=== PATIENT | female | born 1985 | race Caucasian/White ===

== ENCOUNTER → 2016-12-02 | Outpatient (CLI) | payer BC | LOC: GMA 14:45 | PROVIDERS: ATTEND Nurse Practitioner Acute Care | DX: J01.80 Other acute sinusitis (principal) ==

== ENCOUNTER → 2017-04-20 | Outpatient (CLI) | payer BC | END | disposition home or self-care (01) | LOC: GMA 19:25 | PROVIDERS: ATTEND Nurse Practitioner Acute Care | DX: D50.9 Iron deficiency anemia, unspecified (principal); E53.9 Vitamin B deficiency, unspecified ==

== ENCOUNTER → 2017-09-03 | Outpatient (CLI) | payer BC | END | disposition home or self-care (01) | LOC: GMAM 18:22 | PROVIDERS: ATTEND Family Medicine | DX: M25.50 Pain in unspecified joint (principal) ==

== ENCOUNTER → 2018-02-08 | Outpatient (CLI) | payer BC | LOC: GMAM 16:32 | PROVIDERS: ATTEND Family Medicine | DX: D53.9 Nutritional anemia, unspecified (principal); E53.8 Deficiency of other specified B group vitamins ==

== ENCOUNTER → 2018-04-27 | Outpatient (CLI) | payer BC | LOC: GMAJS 10:03 | PROVIDERS: ATTEND Physician Assistant | DX: R10.84 Generalized abdominal pain (principal) ==

== ENCOUNTER → 2018-08-03 | Outpatient (CLI) | payer BC | LOC: GMAJS 10:33 | PROVIDERS: ATTEND Physician Assistant | DX: D53.9 Nutritional anemia, unspecified (principal); E53.8 Deficiency of other specified B group vitamins; R05 Cough ==

== ENCOUNTER → 2018-08-05 | Outpatient (CLI) | payer BC | LOC: GMAM 08:26 | PROVIDERS: ATTEND Physician Assistant | DX: D53.9 Nutritional anemia, unspecified (principal) ==

== ENCOUNTER 2019-04-21 01:47 | Emergency (ER) | payer BC ==
[2019-04-21 02:18] VITALS: O2SAT 98
[2019-04-21] MEDS ORDERED: KETOROLAC TROMETHAMINE INJ 30 MG/ML VIAL IV ONE (02:31)
[2019-04-21] MEDS ORDERED: LACTATED RINGERS 1,000 ML IVS ONE (02:31)
--- NOTE | 2019-04-21 02:36 | ED.PDOC ---
History of Present Illness - General Chief Complaint: Fever Stated Complaint: fever, chills, migraine Time Seen by Provider: 04/21/19 02:24 Source: patient Exam Limitations: no limitations - History of Present Illness Initial Comments: Patricia Merida 34 y/o female came to er with fever ,body aches,feels back of throat is raw and dull mid abdominal pains which started tonight.No ill contact,no travel outside the country,no cough,no dysuria,no N/V,no cough.Denies chronic medical problem.Seen 18 April 2019 at her Md's office and was diagnosed with possible strep throat and was prescribed antibiotics-Cefzil with negative strep test. Timing/Duration: 4-6 hours, constant Severity: moderate Improving Factors: nothing Worsening Factors: nothing Associated Symptoms: other - see hpi Allergies/Adverse Reactions: Allergies NO KNOWN ALLERGY Allergy (Unverified 05/27/13 10:35) Review of Systems - Review of Systems Constitutional: States: see HPI, fever, malaise EENTM: States: see HPI Respiratory: States: no symptoms reported Cardiology: States: no symptoms reported Gastrointestinal/Abdominal: States: no symptoms reported Genitourinary: States: no symptoms reported Musculoskeletal: States: no symptoms reported Skin: States: no symptoms reported Neurological: States: no symptoms reported Endocrine: States: no symptoms reported Hematologic/Lymphatic: States: no symptoms reported All other Systems: Reviewed and Negative, No Change from Baseline Past Medical History (General) - Patient Medical History Hx Seizures: No Hx Stroke: No Hx Dementia: No Hx Asthma: No Hx of COPD: No Hx Cardiac Disorders: No Hx Congestive Heart Failure: No Hx Pacemaker: No Hx Hypertension: No Hx Thyroid Disease: No Hx Diabetes: No Hx Gastroesophageal Reflux: No Hx Cancer: No Hx MRSA: No Surgical History: other - ;CTS - Vaccination History Hx Tetanus, Diphtheria Vaccination: No Hx Influenza Vaccination: Yes Hx Pneumococcal Vaccination: No - Social History Hx Tobacco Use: Yes Hx Chewing Tobacco Use: No Hx Alcohol Use: Yes - ocassional - Female History Patient is a Female of Child Bearing Age (10 -59 yrs old): Yes - Triage Comment ED Triage Comment: stopped smoking 9 years ago Family Medical History - Family History Mother Living Status: Still Living Hx Family;Other: benign tumor Physical Exam - Physical Exam General Appearance: Alert, Comfortable, No apparent distress Eye Exam: bilateral normal Ears, Nose, Throat: hearing grossly normal, normal ENT inspection, pharyngeal erythema Neck: non-tender, full range of motion, supple, normal inspection Respiratory: chest non-tender, lungs clear, normal breath sounds, no respiratory distress Cardiovascular/Chest: normal peripheral pulses, regular rate, rhythm, no murmur Peripheral Pulses: radial,right: 2+, radial,left: 2+ Gastrointestinal/Abdominal: normal bowel sounds, soft, tenderness - mid abdomen no peritoneal signs Back Exam: no CVA tenderness, no vertebral tenderness Extremity: non-tender, no pedal edema, no calf tenderness Neurologic: alert, oriented x 3 Skin Exam: normal color, warm/dry Progress - Progress Progress: 04/21/19 02:39 Vital Signs - 8 hr 04/21/19 01:55 Temperature 101.1 F H Pulse Rate [ 96 H monitor] Respiratory 17 Rate Blood Pressure 114/68 [Left Arm] O2 Sat by Pulse 98 Oximetry - Results/Orders Results/Orders: 04/21/19 02:20 STREP A SCREEN CULTURE Stat 04/21/19 02:31 IV Care:Saline Lock per Protoc QSHIFT 04/21/19 03:31 WEST NILE VIRUS AB PANEL Routine Laboratory Results - last 24 hr 04/21/19 04/21/19 04/21/19 02:20 02:31 02:31 WBC 5.9 RBC 4.39 Hgb 13.5 Hct 39.8 MCV 90.6 MCH 30.8 MCHC 34.0 RDW 12.8 Plt Count 158 MPV 9.3 Absolute Neuts (auto) 4.40 Absolute Lymphs (auto) 1.10 Absolute Monos (auto) 0.30 Absolute Eos (auto) 0.00 Absolute Basos (auto) 0.00 Neutrophils % 74.8 Lymphocytes % 19.3 L Monocytes % 5.4 Eosinophils % 0.3 L Basophils % 0.2 Sodium 139 Potassium 3.5 L Chloride 106 Carbon Dioxide 22 Anion Gap 14.5 BUN 9 Creatinine 0.66 BUN/Creatinine Ratio 13.6 Random Glucose 104 Serum Osmolality 276.5 Lactic Acid Calcium 8.4 Total Bilirubin 0.5 AST 19 ALT 17 Alkaline Phosphatase 51 Serum Total Protein 7.8 Albumin 4.2 Globulin 3.6 H Albumin/Globulin Ratio 1.2 Lipase 41 Serum HCG, Qual Urine Color Urine Appearance Urine pH Ur Specific [place] Urine Protein Urine Glucose (UA) Urine Ketones Urine Blood Urine Nitrite Urine Bilirubin Urine Urobilinogen Ur Leukocyte Esterase Urine RBC Urine WBC Ur Epithelial Cells Urine Bacteria Monoscreen Group A Strep Rapid Negative 04/21/19 04/21/19 04/21/19 02:31 02:50 03:45 WBC RBC Hgb Hct MCV MCH MCHC RDW Plt Count MPV Absolute Neuts (auto) Absolute Lymphs (auto) Absolute Monos (auto) Absolute Eos (auto) Absolute Basos (auto) Neutrophils % Lymphocytes % Monocytes % Eosinophils % Basophils % Sodium Potassium Chloride Carbon Dioxide Anion Gap BUN Creatinine BUN/Creatinine Ratio Random Glucose Serum Osmolality Lactic Acid 0.8 Calcium Total Bilirubin AST ALT Alkaline Phosphatase Serum Total Protein Albumin Globulin Albumin/Globulin Ratio Lipase Serum HCG, Qual Negative Urine Color Yellow Urine Appearance Clear Urine pH 5.5 Ur Specific [place] 1.015 Urine Protein Negative Urine Glucose (UA) Negative Urine Ketones Negative Urine Blood Trace-intact H Urine Nitrite Negative Urine Bilirubin Negative Urine Urobilinogen 0.2 Ur Leukocyte Esterase Negative Urine RBC 1-3 Urine WBC 0 Ur Epithelial Cells 3-5 Urine Bacteria 0 Monoscreen Negative Group A Strep Rapid - EKG/XRAY/CT XRAY: chest - no acute findings CT Ordered: Yes - Abd/p-no acute intraabdominal abnormality Departure - Departure Clinical Impression: Fever and chills, Acute viral syndrome Time of Disposition: 04:38 Disposition: Discharge to Home or Self Care Condition: Fair Departure Forms: ED Discharge - Pt. Copy, Patient Portal Self Enrollment Instructions: DI for Fever (Symptom) -- Adult Diet: other - drink extra fluids Referrals: Jacinto Bingham MD [Primary Care Provider] - 1-2 Weeks Additional Instructions: Continue with all home medications;May take Tylenol 500 mg every 6 hours for fever;Follow up with primary Md 22 April 2019 for recheck;return to Emergency Room as needed
--- NOTE | 2019-04-21 04:24 | RAD ---
EXAM DESCRIPTION: AP view of the chest CLINICAL HISTORY:34 years Female, fever Comparison: None FINDINGS: No focal lung consolidation. No pleural effusion. No pneumothorax. Cardiac and mediastinal silhouette is unremarkable. No acute osseous abnormality. Soft tissues are unremarkable. IMPRESSION: No acute findings. No focal lung consolidation. Electronically signed by: Ken Urban DO 04/21/2019 4:22 AM CDT
--- NOTE | 2019-04-21 04:27 | CT ---
EXAM DESCRIPTION: Abdoment/Pelvis w/o Contrast CLINICAL HISTORY:34 years Female, abdominal pain Comparison: None TECHNIQUE: Contiguous axial CT images of the abdomen and pelvis were obtained. Sagittal and coronal reformats were reviewed. This exam was performed according to our departmental dose-optimization program, which includes automated exposure control, adjustment of the mA and/or kV according to patient size and/or use of iterative reconstruction technique. FINDINGS: Lung bases: Clear. Liver:Unremarkable. No focal liver lesion. Gallbladder:Cholecystectomy clips seen in gallbladder fossa. Spleen:Unremarkable Pancreas: Pancreas is unremarkable. Adrenal glands:Within normal limits. Kidneys/ureters:Within normal limits Stomach/small bowel/colon: Stomach is unremarkable. Small bowel is unremarkable. Marked colonic stool. No bowel wall thickening. Appendix: Appendix not seen with certainty. However, no inflammatory changes or fluid seen in the pericecal region and right lower quadrant. Peritoneum: No free fluid. Vascular structures: within normal limits Lymph nodes: No abnormal lymph nodes. Bladder:Unremarkable. Pelvic organs: No acute abnormality Bones: No acute osseous abnormality. Soft tissues: Unremarkable.. IMPRESSION: Findings suggestive of constipation otherwise no acute intra-abdominal abnormality. Electronically signed by: Ken Urban DO 04/21/2019 4:25 AM CDT
[2019-04-21 04:54] VITALS: BP 93/63; TEMP 99.3
== END 2019-04-21 04:54 | disposition home or self-care (01) ==
LOC: ER 01:47
DX: B34.9 Viral infection, unspecified (principal); R10.9 Unspecified abdominal pain; Z87.891 Personal history of nicotine dependence
CPT/HCPCS: 71045; 74176; 80053; 81001; 83605; 83690; 84703; 85025; 86403; 86788; 86789; 87070; 87880; J1885; J7120

== ENCOUNTER → 2019-10-26 | Outpatient (CLI) | payer OTHER ==
--- NOTE | 2019-10-26 16:28 | CT ---
EXAM DESCRIPTION: Chest w/Contrast CLINICAL HISTORY: BRACHIAL PLEXUS DISORDERS COMPARISON: Chest radiograph April 21, 2019 TECHNIQUE: Chest CT was performed with IV contrast. This exam was performed according to our departmental dose-optimization program, which includes automated exposure control, adjustment of the mA and/or kV according to patient size and/or use of iterative reconstruction technique. FINDINGS: The thyroid and thoracic inlet are unremarkable. No thoracic aortic aneurysm or dissection. No hiatal hernia or esophageal wall thickening. No pleural or pericardial effusion. The main pulmonary artery is unremarkable. No mediastinal or hilar adenopathy. The central airways are clear. No airspace consolidation or lung mass. Tiny calcified granuloma in the right middle lobe (series 6 image 73). No suspicious lung nodule. Visualized portions of the upper abdomen are unremarkable. No breast or other chest wall lesion. No axillary adenopathy. Supraclavicular soft tissues are unremarkable. Visualized portions of the scalene muscles are bilaterally symmetric and otherwise unremarkable. No bone abnormality. 12 paired ribs. IMPRESSION: Negative exam. No cervical rib, mass or inflammation the base of the neck explain patient's symptoms. Electronically signed by: Arnel Lyon MD 10/26/2019 4:[address] [facility]
--- NOTE | 2019-10-26 16:36 | CT ---
EXAM DESCRIPTION: Cervical Spine CLINICAL HISTORY: 34 years Female CERVICALIGIA COMPARISON: None TECHNIQUE: Images were obtained in axial, sagittal, and coronal planes. Intravenous contrast was administered. This exam was performed according to our departmental dose-optimization program which includes use of Automated Exposure Control, adjustment of the mA and/or kV according to patient size and/or use of iterative reconstruction technique. FINDINGS: Mild adenopathy with ill-defined fluid and mesenteric stranding is identified involving the left supraclavicular region involving the brachial plexus. The largest lymph node in this region measures 1.6 cm. No well-circumscribed fluid collections seen. The findings would be consistent with inflammatory change in this region. Evaluation somewhat limited related to beam hardening artifact secondary to adjacent left clavicle. The findings are best identified on axial series 3 image 76 as well as coronal series 604 image 75. No filling defects carotid arteries or jugular veins bilaterally. Unusual 1.6 x 1.8 cm round soft tissue finding posterior to left clavicle in region of left subclavian vein. This finding is best identified on axial image 82 and coronal image 71. Height of the vertebral bodies is intact. Satisfactory alignment articular facets. Intact odontoid and predental space. Prevertebral soft tissues appear normal. Posterior elements intact all levels. No focal disc protrusion seen. No bony narrowing of the spinal canal at any level. No abnormality lung apices bilaterally. IMPRESSION: Inflammatory changes with mild adenopathy medial left supraclavicular soft tissues in region of brachial plexus. The findings would be consistent with brachial neuritis or brachial plexitis. No evidence for abscess. Unusual 1.8 cm round soft tissue finding posterior to left clavicle in region of left subclavian vein. The finding may represent varicosity or lymph node. Correlation with venous ultrasound of the left upper extremity would be suggested to entirely exclude unusual thrombus. No acute fracture or subluxation involving the cervical spine. No evidence for retropharyngeal inflammatory process. Electronically signed by: Ni Dhillon MD 10/26/2019 4:34 PM BEVEL POLISHER
== END ==
LOC: CT 14:38
PROVIDERS: ATTEND Family Medicine
DX: R59.0 Localized enlarged lymph nodes (principal); M79.9 Soft tissue disorder, unspecified; G54.0 Brachial plexus disorders

== ENCOUNTER → 2019-10-26 | Outpatient (CLI) | payer BC ==
--- NOTE | 2019-10-27 07:55 | US ---
EXAM: Venous,Upper Extremity LT CLINICAL HISTORY: BRACHIAL PLEXUS DISORDERS COMPARISON STUDY: None. FINDINGS: Olivier scale imaging, Doppler and color-flow evaluation of the upper extremity venous system demonstrates normal flow, compressibility where available and normal Doppler signal. No evidence for a clot. The innominate vein, jugular vein, subclavian, axillary, brachial, radial, ulna, cephalic, and basilic veins were evaluated. IMPRESSION: NEGATIVE LEFT UPPER EXTREMITY VENOUS DOPPLER. Electronically signed by: Ruslan Marmolejo MD 10/27/2019 7:54 AM ASSEMBLIES AND INSTALLATIONS INSPECTOR
== END ==
LOC: CT 13:31
PROVIDERS: ATTEND Family Medicine
DX: G54.0 Brachial plexus disorders (principal); R59.0 Localized enlarged lymph nodes; M79.9 Soft tissue disorder, unspecified; M54.2 Cervicalgia

== ENCOUNTER → 2019-10-26 | Outpatient (CLI) | payer BC | LOC: MRI 14:38 | PROVIDERS: ATTEND Family Medicine | DX: G54.0 Brachial plexus disorders (principal); M54.2 Cervicalgia ==

== ENCOUNTER → 2020-06-18 | Outpatient (CLI) | payer BC | LOC: GMAM 14:26 | PROVIDERS: ATTEND Family Medicine | DX: E53.8 Deficiency of other specified B group vitamins (principal); D50.9 Iron deficiency anemia, unspecified ==

== ENCOUNTER → 2020-08-28 | Outpatient (CLI) | payer BC | LOC: GMAM 14:48 | PROVIDERS: ATTEND Family Medicine | DX: M79.645 Pain in left finger(s) (principal) ==

== ENCOUNTER → 2020-11-29 | Outpatient (CLI) | payer BC | LOC: GMAM 09:42 | PROVIDERS: ATTEND Family Medicine | DX: U07.1 COVID-19 (principal) ==

== ENCOUNTER 2020-12-08 17:38 | Emergency (ER) | payer BC ==
[2020-12-08] MEDS ORDERED: SUCRALFATE 1 GM/10 ML 1 GM UD PO ONE (18:07)
[2020-12-08] MEDS ORDERED: SODIUM CHLORIDE 0.9% 1000ML 1,000 ML IVS ONE ×2 (18:07→20:03)
[2020-12-08] MEDS ORDERED: PROMETHAZINE HCL INJ 25 MG in SODIUM CHLORIDE 0.9% 50ML 50 ML IVPB ONE (18:07)
--- NOTE | 2020-12-08 18:41 | RAD ---
EXAM: Abdomen Series CLINICAL INDICATION: Nausea, vomiting, cough COMPARISON: There is no previous study for comparison. FINDINGS: A single view of the chest reveals the heart size is normal. The pulmonary vessels are unremarkable. The lungs are clear. There is no evidence of free air under the hemidiaphragms. 2views of the abdomen were obtained. There is a nonspecific bowel gas pattern with no radiographic evidence of bowel obstruction. There are no dilated loops of small bowel. There is no evidence of pneumoperitoneum or pathologic calcifications. IMPRESSION: No evidence of an acute intraabdominal process. Electronically signed by: Chris Lamas MD 12/08/2020 6:40 PM [employer]IVEST[employer] BRANDS INSPECTOR
[2020-12-08] MEDS ORDERED: DEXAMETHASONE INJ 4 MG/ML VIAL IV ONE (19:35)
[2020-12-08] MEDS ORDERED: SCOPOLAMINE PATCH 1.5MG 1 EA TD ONE (19:35)
--- NOTE | 2020-12-08 20:18 | ED.PDOC ---
History of Present Illness - General Chief Complaint: Respiratory Problem Stated Complaint: Cough, SOB, chest tightness, sinus press Time Seen by Provider: 12/08/20 17:45 Source: patient Exam Limitations: no limitations - History of Present Illness Initial Comments: The patient is a 35-year-old female presented emergency room secondary to persistent nausea and vomiting. The patient was diagnosed with coronavirus almost a couple of weeks ago. She has had significant GI upset along with a cough. The runny nose and sore throat had run its course. The diarrhea has largely run its course. She has however continued to have nausea and vomiting and feels dehydrated and has a headache as a result. She does have a cough though lung hutson are largely clear. No hypoxia. Vital signs are stable. She is alert and oriented. Timing/Duration: unsure Severity: moderate Improving Factors: nothing Worsening Factors: eating Associated Symptoms: cough, headaches, loss of appetite, malaise, nausea/vomiting Allergies/Adverse Reactions: Allergies Ondansetron [From Zofran] Allergy (Verified 12/08/20 18:30) Home Medications: Ambulatory Orders Promethazine HCl 25 mg PO Q6H PRN #10 tab 12/08/20 Sucralfate Tab [Carafate Tab] 1 gm PO QID #60 tab 12/08/20 Review of Systems - Review of Systems Constitutional: States: malaise EENTM: States: no symptoms reported Respiratory: States: cough Cardiology: States: no symptoms reported Gastrointestinal/Abdominal: States: nausea, vomiting Genitourinary: States: no symptoms reported Musculoskeletal: States: no symptoms reported Skin: States: no symptoms reported Neurological: States: headache Endocrine: States: no symptoms reported All other Systems: No Change from Baseline Past Medical History (General) - Patient Medical History Hx Seizures: No Hx Stroke: No Hx Dementia: No Hx Asthma: No Hx of COPD: No Hx Cardiac Disorders: No Hx Congestive Heart Failure: No Hx Pacemaker: No Hx Hypertension: No Hx Thyroid Disease: No Hx Diabetes: No Hx Gastroesophageal Reflux: Yes Hx Cancer: No Hx MRSA: No Surgical History: cholecystectomy, other - Vaccination History Hx Tetanus, Diphtheria Vaccination: No Hx Influenza Vaccination: No Hx Pneumococcal Vaccination: No - Social History Hx Tobacco Use: Yes Hx Chewing Tobacco Use: No Hx Alcohol Use: Yes Hx Substance Use: No Hx Substance Use Treatment: No Hx Depression: No - Female History Patient is a Female of Child Bearing Age (10 -59 yrs old): Yes Patient : No - Denies Family Medical History - Family History Mother Living Status: Still Living Hx Family;Other: benign tumor Physical Exam - Physical Exam General Appearance: Alert, No apparent distress Eye Exam: bilateral normal Ears, Nose, Throat: hearing grossly normal, normal pharynx - Mildly dry Neck: full range of motion, supple Respiratory: lungs clear - Frequent cough however, normal breath sounds, no respiratory distress, no accessory muscle use Cardiovascular/Chest: normal peripheral pulses, regular rate, rhythm, no edema Peripheral Pulses: radial,right: 2+, radial,left: 2+ Gastrointestinal/Abdominal: non tender, soft Rectal Exam: deferred Back Exam: no CVA tenderness, no vertebral tenderness Extremity: normal range of motion, non-tender, normal inspection, no pedal edema, normal capillary refill Neurologic: networker II-XII nml as tested, alert, normal mood/affect, oriented x 3 Skin Exam: normal color Comments: Vital Signs - 24 hr 12/08/20 12/08/20 12/08/20 17:38 17:39 18:39 Temperature 97.5 F L Pulse Rate [ 81 81 96 H Pulse ox] Respiratory 16 16 Rate Blood Pressure 109/73 116/89 [R arm] O2 Sat by Pulse 99 99 Oximetry 12/08/20 19:00 Temperature Pulse Rate [ 92 H Pulse ox] Respiratory 14 Rate Blood Pressure 109/79 [R arm] O2 Sat by Pulse 97 Oximetry Progress - Progress Progress: 12/08/20 20:19 Patient is a 35-year-old female presented emergency room secondary to persistent cough and nausea and vomiting related to her previous coronavirus infection. No hypoxia and lung hutson are clear. Chest x-ray is reassuring. She did receive 1 dose of IV dexamethasone to help reduce irritation in the upper airways. This should also help with nausea and vomiting. The patient does have a headache that is likely related to the dehydration itself. She received 2 L of IV fluids here. A scopolamine patch was also placed on the patient which can be left in place for up to 3 days. Obviously if it is causing dizziness or excessive drowsiness it needs to be removed. The patient is going to be written for Phenergan for as needed use to control any nausea vomiting otherwise. She will also be written for Carafate to take for the next 2 weeks. She needs to keep her self well-hydrated and eat a bland diet. ER warnings are given for any obvious worsening. Keep routine follow-up with primary care doctor otherwise. cam andrews [phone] 12/08/20 22:13 - Results/Orders Results/Orders: Laboratory Tests 12/08/20 12/08/20 12/08/20 18:10 18:10 18:10 WBC 7.0 RBC 4.29 Hgb 13.0 Hct 38.4 MCV 89.6 MCH 30.4 MCHC 33.9 RDW 13.2 Plt Count 202 MPV 8.4 Absolute Neuts (auto) 5.10 Absolute Lymphs (auto) 1.50 Absolute Monos (auto) 0.30 Absolute Eos (auto) 0.00 Absolute Basos (auto) 0.00 Neutrophils % 72.5 Lymphocytes % 21.7 Monocytes % 4.8 Eosinophils % 0.5 L Basophils % 0.5 PT 10.6 INR 1.07 PTT (SP) 25.9 Fibrinogen D-Dimer, Quantitative < 131.0 L Sodium 137 Potassium 3.6 Chloride 105 Carbon Dioxide 24 Anion Gap 11.6 L BUN 13 Creatinine 0.62 BUN/Creatinine Ratio 21.0 H Random Glucose 104 Serum Osmolality 274.2 L Lactic Acid Calcium 8.3 L Magnesium 2.3 Ferritin Total Bilirubin 1.0 AST 17 ALT 26 Alkaline Phosphatase 43 LD Total Creatine Kinase 47 CK-MB (CK-2) 0.5 CK-MB (CK-2) % Not Reportable Troponin I < 0.02 C-Reactive Protein B-Natriuretic Peptide 18.4 Serum Total Protein 6.9 Albumin 3.8 Globulin 3.1 Albumin/Globulin Ratio 1.2 Amylase 125 H Lipase 36 Serum HCG, Qual Group A Strep Rapid 12/08/20 12/08/20 12/08/20 18:10 18:10 18:10 WBC RBC Hgb Hct MCV MCH MCHC RDW Plt Count MPV Absolute Neuts (auto) Absolute Lymphs (auto) Absolute Monos (auto) Absolute Eos (auto) Absolute Basos (auto) Neutrophils % Lymphocytes % Monocytes % Eosinophils % Basophils % PT INR PTT (SP) Fibrinogen 293 D-Dimer, Quantitative Sodium Potassium Chloride Carbon Dioxide Anion Gap BUN Creatinine BUN/Creatinine Ratio Random Glucose Serum Osmolality Lactic Acid 0.8 Calcium Magnesium Ferritin 71.7 Total Bilirubin AST ALT Alkaline Phosphatase LD Total Creatine Kinase CK-MB (CK-2) CK-MB (CK-2) % Troponin I C-Reactive Protein B-Natriuretic Peptide Serum Total Protein Albumin Globulin Albumin/Globulin Ratio Amylase Lipase Serum HCG, Qual Group A Strep Rapid 12/08/20 12/08/20 12/08/20 18:10 18:10 18:10 WBC RBC Hgb Hct MCV MCH MCHC RDW Plt Count MPV Absolute Neuts (auto) Absolute Lymphs (auto) Absolute Monos (auto) Absolute Eos (auto) Absolute Basos (auto) Neutrophils % Lymphocytes % Monocytes % Eosinophils % Basophils % PT INR PTT (SP) Fibrinogen D-Dimer, Quantitative Sodium Potassium Chloride Carbon Dioxide Anion Gap BUN Creatinine BUN/Creatinine Ratio Random Glucose Serum Osmolality Lactic Acid Calcium Magnesium Ferritin Total Bilirubin AST ALT Alkaline Phosphatase LD Total 118 Creatine Kinase CK-MB (CK-2) CK-MB (CK-2) % Troponin I C-Reactive Protein < 0.8 B-Natriuretic Peptide Serum Total Protein Albumin Globulin Albumin/Globulin Ratio Amylase Lipase Serum HCG, Qual Negative Group A Strep Rapid Negative Rapid flu is negative. Acute abdominal series is negative. See report for details. EKG shows normal sinus rhythm at 76 bpm. Normal R wave progression. No ST segment or T wave changes indicative of acute ischemia. urinAnalysis is clear. Departure - Departure Clinical Impression: Dehydration, COVID-19 virus infection, Gastroenteritis due to 2019 novel coronavirus Disposition: Discharge to Home or Self Care Condition: Fair Departure Forms: ED Discharge - Pt. Copy, Patient Portal Self Enrollment Instructions: Coronavirus Disease 2019 (COVID-19) Overview Diet: bland diet Activity: increase activity as tolerated Referrals: Jacinto Andrews MD [Primary Care Provider] - 1-2 Weeks Prescriptions: Sucralfate Tab [Carafate Tab] 1 gm PO QID #60 tab Promethazine HCl 25 mg PO Q6H PRN #10 tab PRN Reason: Vomiting Home Medications: Ambulatory Orders Promethazine HCl 25 mg PO Q6H PRN #10 tab 12/08/20 Sucralfate Tab [Carafate Tab] 1 gm PO QID #60 tab 12/08/20 Additional Instructions: Patient is a 35-year-old female presented emergency room secondary to persistent cough and nausea and vomiting related to her previous coronavirus infection. No hypoxia and lung hutson are clear. Chest x-ray is reassuring. She did receive 1 dose of IV dexamethasone to help reduce irritation in the upper airways. This should also help with nausea and vomiting. The patient does have a headache that is likely related to the dehydration itself. She received 2 L of IV fluids here. A scopolamine patch was also placed on the patient which can be left in place for up to 3 days. Obviously if it is causing dizziness or excessive drowsiness it needs to be removed. The patient is going to be written for Phenergan for as needed use to control any nausea vomiting otherwise. She will also be written for Carafate to take for the next 2 weeks. She needs to keep her self well-hydrated and eat a bland diet. ER warnings are given for any obvious worsening. Keep routine follow-up with primary care doctor otherwise.
[2020-12-08] MEDS ORDERED: SODIUM CHLORIDE 0.9% (FLUSH) 10 ML SYG ONE (22:01)
[2020-12-08 22:48] VITALS: BP 116/78; TEMP 97.9; O2SAT 96
== END 2020-12-08 22:18 | disposition home or self-care (01) ==
LOC: ER 17:38
DX: U07.1 COVID-19 (principal); A08.39 Other viral enteritis; K21.9 Gastro-esophageal reflux disease without esophagitis; Z90.49 Acquired absence of other specified parts of digestive tract; Z87.891 Personal history of nicotine dependence; Z88.8 Allergy status to other drugs, medicaments and biological substances
CPT/HCPCS: 74019; 80053; 81001; 82150; 82550; 82553; 82728; 83605; 83615; 83690; 83735; 83880; 84484; 84703; 85025; 85379; 85384; 85610; 85730; 86140; 87502; 87880; 93005; A4216; J1100; J2550; J7030

== ENCOUNTER → 2020-12-13 | Outpatient (CLI) | payer BC, OTHER | LOC: GMAM 16:22 | PROVIDERS: ATTEND Family Medicine | DX: U07.1 COVID-19 (principal); R10.84 Generalized abdominal pain ==